=== PATIENT | male | born 1940 | race Caucasian/White ===

== ENCOUNTER 2018-12-01 21:59 | Observation (INO) | payer MEDICARE, OTHER ==
[~2018-12-01] VITALS: Ht 165.1 cm; Wt 71.1 kg
[2018-12-03 08:01] VITALS: BP 129/78
== END 2018-12-03 14:15 | disposition home or self-care (01) ==
LOC: ED 12-02 00:29 → INTOOBSV 12-02 01:05 → EDIP 12-02 01:05 → 4EST 12-02 01:47 → DCLOUNGE 12-03 14:10
PROVIDERS: ADMIT Internal Medicine; ATTEND Internal Medicine
DX: R07.89 Other chest pain (principal); I25.10 Atherosclerotic heart disease of native coronary artery without angina pectoris; I11.0 Hypertensive heart disease with heart failure; I50.9 Heart failure, unspecified; G47.00 Insomnia, unspecified; E78.5 Hyperlipidemia, unspecified; I25.5 Ischemic cardiomyopathy; Z95.1 Presence of aortocoronary bypass graft
CPT/HCPCS: 36415; 71045; 71275; 78452; 80048; 80053; 83735; 83880; 84436; 84443; 84484; 85025; 85379; 93005; 93017; 96374; 96375; 99284; A9502; C8929; G0378; J2270; J2405; Q9957; Q9967